=== PATIENT | female | born 1950 | race Caucasian/White ===

== ENCOUNTER 2019-04-17 08:00 | Inpatient (IN) | payer OTHER ==
[~2019-04-17] VITALS: Ht 162.6 cm; Wt 80.7 kg
[2019-05-17] MEDS ORDERED: ALTACE2.5 MG PO (08:04)
[2019-05-17] MEDS ORDERED: METFORMIN HCL500 MG PO (08:04)
[2019-05-17] MEDS ORDERED: PREVASTATIN PO (08:04)
[2019-05-17] MEDS ORDERED: XYZAL5 MG PO (08:05)
[2019-05-17] MEDS ORDERED: GLYCOTROL CAPS1 EACH PO (08:05)
[2019-05-22] MEDS ORDERED: PRAVASTATIN SOD10 MG PO (08:03)
[2019-05-25] MEDS ORDERED: XARELTO10 MG PO (10:00)
[2019-05-25] MEDS ORDERED: INTEGRA PLUS C1 EACH PO (10:00)
[2019-05-25] MEDS ORDERED: OXYC1TAB9 PO (10:00)
== END 2019-05-25 14:51 | DRG 470 ==
LOC: ADM 08:00 → EDSTATUS 05-17 08:00 → ADM 05-17 08:00 → O/R 05-22 07:00 → SURH 05-22 07:00
PROVIDERS: ADMIT Orthopaedic Surgery Sports Medicine
PROC: 0SRC0J9 Replacement of Right Knee Joint with Synthetic Substitute, Cemented, Open Approach (ICD-10-PCS; principal; 2019-05-22 07:00)
DX: M17.11 Unilateral primary osteoarthritis, right knee (principal); I10 Essential (primary) hypertension; E11.9 Type 2 diabetes mellitus without complications

== ENCOUNTER 2019-10-05 09:07 | Outpatient (CLI) | payer OTHER ==
[~2019-10-05 09:07] MED LIST: ALTACE2.5 MG PO; GLYCOTROL CAPS1 EACH PO; INTEGRA PLUS C1 EACH PO; METFORMIN HCL500 MG PO; OXYC1TAB9 PO; PRAVASTATIN SOD10 MG PO; PREVASTATIN PO; XARELTO10 MG PO; XYZAL5 MG PO
== END 2019-10-05 09:09 | disposition home or self-care (01) ==
LOC: SONOGRAMA 09:07
DX: E04.2 Nontoxic multinodular goiter (principal)

== ENCOUNTER 2021-09-09 10:42 | Outpatient (CLI) | payer OTHER | END 2021-09-09 10:44 | disposition home or self-care (01) | LOC: SONOGRAMA 10:42 | PROVIDERS: ATTEND Pathology Anatomic Pathology & Clinical Pathology | DX: E07.89 Other specified disorders of thyroid (principal); E04.1 Nontoxic single thyroid nodule; D34 Benign neoplasm of thyroid gland ==

== ENCOUNTER 2024-05-08 09:02 | Outpatient (CLI) | payer OTHER | END 2024-05-08 09:06 | disposition home or self-care (01) | LOC: RAD 09:02 | PROVIDERS: ATTEND Pathology Anatomic Pathology & Clinical Pathology | DX: D34 Benign neoplasm of thyroid gland (principal); E07.89 Other specified disorders of thyroid; E04.1 Nontoxic single thyroid nodule ==